=== PATIENT | male | born 1975 | race Caucasian/White ===

== ENCOUNTER 2020-04-12 17:37 | Observation (INO) | payer BC, OTHER ==
[~2020-04-12] VITALS: Ht 187 cm; Wt 123.0 kg
[2020-04-12] MEDS ORDERED: LISI10TA2 PO (17:43)
[2020-04-12] MEDS ORDERED: meTOprolol 5 MG/5 ML (LOPRESSOR) VIAL IV STA (17:48)
[2020-04-12 17:54] LABS: MEAN CORPUSCULAR HEMOGLOBIN 31 PG (25-34); MEAN CORPUSCULAR HGB CONC 33 G/DL (32-36); MEAN CORPUSCULAR VOLUME 94 FL (80-99); MEAN PLATELET VOLUME 9.4 FL (7.4-10.4); PLATELET COUNT 272 10^3/uL (130-400); WHITE BLOOD COUNT 9.6 10^3/uL (4.3-11.0)
[2020-04-12 17:55] LABS: BASOPHILS # (AUTO) 0.1 10^3/uL (0.0-0.1); BASOPHILS % (AUTO) 1 % (0-10); EOSINOPHILS # (AUTO) 0.4 10^3/uL (0.0-0.3); EOSINOPHILS % (AUTO) 4 % (0-10); HEMATOCRIT 51 % (40-54); LYMPHOCYTES # (AUTO) 3.2 X 10^3 (1.0-4.0); LYMPHOCYTES % (AUTO) 33 % (12-44); MONOCYTES # (AUTO) 0.7 X 10^3 (0.0-1.0); MONOCYTES % (AUTO) 7 % (0-12); NEUTROPHILS # (AUTO) 5.2 X 10^3 (1.8-7.8); NEUTROPHILS % (AUTO) 54 % (42-75)
--- NOTE | 2020-04-12 17:55 | ED General ---
General Chief Complaint: Cardiac/General Problems Stated Complaint: LT ARM/DARRICK CLAVICAL PAIN; INDIGESTION; NAUSEA Source of Information: Patient History of Present Illness Date Seen by Provider: Apr 12, 2020 Time Seen by Provider: 17:37 Initial Comments 44 yo Male presents with intermittent left arm pain, aching pain in upper back and clavicle. He also has had some nausea with this. He reports that it was intermittent and nothing specific seems to bring on the pain in arm. He had some indigestion last night and thought it was because he ate food that caused him to have an upset stomach. He then has had issues all day today. He is very anxious and nervous and concerned about what is going on for his symptoms. He was worried about what all is being done to him and states it is making him even more anxious and nervous that we are all looking at him at once when he presented. He has high blood pressure and takes lisinopril for that. He has family members with COPD and HTN. He does smoke cigarettes and drink alcohol but denies illicit drug use. Allergies and Home Medications Allergies Coded Allergies: No Known Drug Allergies (Unverified , 04/12/20) Home Medications Lisinopril 10 Mg Tablet, 10 MG PO DAILY, (Reported) Patient Home Medication List Home Medication List Reviewed: Yes Review of Systems Review of Systems Constitutional: No chills, No fever EENTM: no symptoms reported Respiratory: No cough, No short of breath Cardiovascular: see HPI, palpitations (heart racing here in the ED with anxiety) Gastrointestinal: see HPI, nausea (intermittent) Genitourinary: no symptoms reported Musculoskeletal: see HPI, muscle pain (left upper arm aching pain off and on all day) Skin: no symptoms reported Psychiatric/Neurological: Anxiety Past Msodlor-Bfvpwm-Ozvwcb Hx Past Med/Social Hx: Reviewed Nursing Past Med/Soc Hx Patient Social History Alcohol Use: Regular Use Alcohol Beverage of Choice: Beer Recreational Drug Use: No Smoking Status: Current Everyday Smoker Type Used: Cigarettes Recent Foreign Travel: No Contact w/Someone Who Travel: No Recent Infectious Disease Expo: No Recent Hopitalizations: No Past Medical History Surgeries: No Respiratory: No Cardiac: Yes Hypertension Psychosocial: Yes Anxiety Family Medical History Heart Disease, COPD, Hypertension Physical Exam Vital Signs Vital Signs - First Documented 04/12/20 17:40 Temp 36.8 Pulse 122 Resp 20 B/P (MAP) 206/113 (144) Pulse Ox 100 O2 Delivery Room Air Capillary Refill : Height, Weight, BMI Height: '" Weight: lbs. oz. kg; BMI Method: General Appearance: Anxious, Obese HEENT: PERRL/EOMI, Pharynx Normal Neck: Non Tender, Supple Respiratory: Chest Non Tender, Lungs Clear, Normal Breath Sounds, No Accessory Muscle Use, No Respiratory Distress Cardiovascular: No Murmur, Normal Peripheral Pulses, Tachycardia Gastrointestinal: Normal Bowel Sounds, No Pulsatile Mass, Non Tender, Soft Extremity: Normal Capillary Refill, Non Tender, No Pedal Edema Neurologic/Psychiatric: Alert, Oriented x3, ceo [place] II-XII Norm as Tested Skin: Normal Color, Warm/Dry Progress/Results/Core Measures Suspected Sepsis SIRS Temperature: Pulse: Respiratory Rate: Laboratory Tests 04/12/20 17:44: White Blood Count 9.6 Blood Pressure / Mean: Laboratory Tests 04/12/20 17:44: Creatinine 1.10, INR Comment 0.9, Platelet Count 272, Total Bilirubin 0.6 Results/Orders Lab Results Laboratory Tests Test 04/12/20 17:44 Range/Units White Blood Count 9.6 4.3-11.0 10^3/uL Red Blood Count 5.44 4.35-5.85 10^6/uL Hemoglobin 17.0 13.3-17.7 G/DL Hematocrit 51 40-54 % Mean Corpuscular Volume 94 80-99 FL Mean Corpuscular Hemoglobin 31 25-34 PG Mean Corpuscular Hemoglobin Concent 33 32-36 G/DL Red Cell Distribution Width 13.3 10.0-14.5 % Platelet Count 272 130-400 10^3/uL Mean Platelet Volume 9.4 7.4-10.4 FL Immature Granulocyte % (Auto) 0 % Neutrophils (%) (Auto) 54 42-75 % Lymphocytes (%) (Auto) 33 12-44 % Monocytes (%) (Auto) 7 0-12 % Eosinophils (%) (Auto) 4 0-10 % Basophils (%) (Auto) 1 0-10 % Neutrophils # (Auto) 5.2 1.8-7.8 X 10^3 Lymphocytes # (Auto) 3.2 1.0-4.0 X 10^3 Monocytes # (Auto) 0.7 0.0-1.0 X 10^3 Eosinophils # (Auto) 0.4 H 0.0-0.3 10^3/uL Basophils # (Auto) 0.1 0.0-0.1 10^3/uL Immature Granulocyte # (Auto) 0.0 0.0-0.1 10^3/uL Prothrombin Time 12.9 12.2-14.7 SEC INR Comment 0.9 0.8-1.4 Activated Partial Thromboplast Time 26 24-35 SEC Sodium Level 139 135-145 MMOL/L Potassium Level 3.4 L 3.6-5.0 MMOL/L Chloride Level 103 98-107 MMOL/L Carbon Dioxide Level 24 21-32 MMOL/L Anion Gap 12 5-14 MMOL/L Blood Urea Nitrogen 10 7-18 MG/DL Creatinine 1.10 0.60-1.30 MG/DL Estimat Glomerular Filtration Rate > 60 BUN/Creatinine Ratio 9 Glucose Level 148 H 70-105 MG/DL Calcium Level 10.5 H 8.5-10.1 MG/DL Corrected Calcium 10.2 H 8.5-10.1 MG/DL Magnesium Level 1.7 1.6-2.4 MG/DL Total Bilirubin 0.6 0.1-1.0 MG/DL Aspartate Amino Transf (AST/SGOT) 21 5-34 U/L Alanine Aminotransferase (ALT/SGPT) 26 0-55 U/L Alkaline Phosphatase 70 40-136 U/L Troponin I < 0.30 <0.30 NG/ML Pro-B-Type Natriuretic Peptide < 5.0 <75.0 PG/ML Total Protein 7.1 6.4-8.2 GM/DL Albumin 4.4 3.2-4.5 GM/DL Lipase 39 8-78 U/L My Orders Orders - LEI MASON MD Cbc With Automated Diff (04/12/20 17:48) Magnesium (04/12/20 17:48) Chest 1 View Ap/Pa Only (04/12/20 17:48) Ekg Tracing (04/12/20 17:48) Comprehensive Metabolic Panel (04/12/20 17:48) Protime With Inr (04/12/20 17:48) Partial Thromboplastin Time (04/12/20 17:48) O2 (04/12/20 17:48) Monitor-Rhythm Ecg Trace Only (04/12/20 17:48) Aspirin Chewable Tablet (Baby Aspirin Ch (04/12/20 18:00) Ed Iv/Invasive Line Start (04/12/20 17:48) Lipase (04/12/20 17:48) Troponin I Fs (04/12/20 17:48) Probnp Fs (04/12/20 17:48) Metoprolol Tartrate Injection (Lopressor (04/12/20 17:48) Amlodipine Tablet (Norvasc Tablet) (04/12/20 19:26) Medications Given in ED Current Medications Medications Dose Ordered Sig/Roxana Route Start Time Stop Time Status Last Admin Dose Admin Aspirin 324 mg ONCE ONCE PO 04/12/20 18:00 04/12/20 18:01 DC 04/12/20 18:01 324 MG Vital Signs/I&O 04/12/20 04/12/20 17:40 19:46 Temp 36.8 Pulse 122 83 Resp 20 19 B/P (MAP) 206/113 (144) 143/71 Pulse Ox 100 97 O2 Delivery Room Air Room Air Capillary Refill : Progress Note #1: Progress Note check labs and ECG with CXR. His heart rate is elevated but he states he is very anxious and is asking repeated questions because of being so nervous. Denies headache or vision change or chest pain with his elevated blood pressure. Will try a dose of metoprolol and give 324 m g of Aspirin while waiting on test results. Initial ECG shows sinus tachycardia but no ST elevation. Progress Note #2: Time: 18:12 Progress Note CBC and Coags are normal without acute significant abnormality. CXR without acute significant abnormality. Chemistry and cardiac enzymes pending. Heart rate improving as he is calming down and blood pressure starting to come down on its own some prior to metoprolol and aspirin administration. Progress Note #3: Time: 18:49 Progress Note Initial Troponin negative. D/w Dr. Brown robotics application engineer for [facility] and she accepted for observation admit for serial enzymes. She requested a UDS to be added on and to give Amlodipine for blood pressure. Advised pt of plan and he requested to try to go to [place] since he is more familar with that hospital and staff. However when [facility] was contacted they had no beds available. After updating pt he was agreeable to going to [facility]. He did want to have his son drive him rather than go by EMS though. He stated understanding of risk of cardiac problems and not being able to monitor his rhythm and heart condition. ECG Initial ECG Impression Date: Apr 12, 2020 Initial ECG Impression Time: 17:44 Initial ECG Rate: 113 Initial ECG Rhythm: S.Tach Initial ECG Comparisson: No Previous ECG Available Comment sinus tachycardia with heart rate 113 bpm. PA interval 138 ms. QT interval 302 ms with a QTc interval 414 ms. There is no acute ST elevation. There is no prior tracing available for comparison. Diagnostic Imaging Diagonstic Imaging: Xray Plain Films/CT/US/NM/MRI: chest Comments NAME: BRANDON ARAIZA [employer] REC#: [id number] PT STATUS: REG ER : 1975 PHYSICIAN: LEI MASON MD ADMIT DATE: 04/12/20/ER FS Signed Date of Exam:04/12/20 CHEST 1 VIEW AP/PA ONLY CHEST 1 VIEW AP/PA ONLY Indication: Left arm pain, nausea, elevated blood pressure. Comparison: None available. Findings: No focal airspace disease in the visualized lungs. Please note that the posterior lower lobes are poorly evaluated by portable radiography. No pleural effusion or pneumothorax. Normal cardiomediastinal silhouette. Impression: 1. No acute cardiopulmonary process by portable radiography. Dictated by: Dictated on workstation # [id number] Dict: 04/12/201806 Trans: 04/12/201807 [facility] [id number] Interpreted by: BHAVANI BOSS MD Electronically signed by: BHAVANI BOSS MD 04/12/201807 Departure Communication (Admissions) Time/Spoke to Admitting Phy: 18:49 d/w Dr. Brown robotics application engineer for [facility] since pt follows with Dr. Ceja. She accepted him for cardiac rule out and serial enzymes. With continued htn will give Amlodipine here and add on UDS. when patient advised of admission he wanted to try to go to [place] because it was more familiar with the hospital. However when the family was contacted they stated that they will work capacity and did not have any open beds for admission. When patient was advised that this he was willing to go to [place]. He refused an ambulance transfer and states he understands the risk of not being monitored in route. Impression Primary Impression: Hypertension Qualified Codes: I10 - Essential (primary) hypertension Additional Impressions: Left arm pain Nausea Disposition: 30 STILL A PATIENT Condition: Stable Admissions Decision to Admit Reason: Admit from ER (General) Decision to Admit/Date: Apr 12, 2020 Time/Decision to Admit Time: 18:49 LEI MASON MD Apr 12, 2020 17:55
[2020-04-12] MEDS ORDERED: ASPIRIN 81 MG CHEW (CHILDREN'S ASA) PO ONE (18:00)
[2020-04-12 18:09] LABS: INR 0.9 (0.8-1.4); PROTHROMBIN TIME PATIENT 12.9 SEC (12.2-14.7)
--- NOTE | 2020-04-12 18:09 | Diagnostic Imaging Report ---
CHEST 1 VIEW AP/PA ONLY Indication: Left arm pain, nausea, elevated blood pressure. Comparison: None available. Findings: No focal airspace disease in the visualized lungs. Please note that the posterior lower lobes are poorly evaluated by portable radiography. No pleural effusion or pneumothorax. Normal cardiomediastinal silhouette. Impression: 1. No acute cardiopulmonary process by portable radiography. Dictated by: Dictated on workstation # [id number]
[2020-04-12 18:17] LABS: CARBON DIOXIDE 24 MMOL/L (21-32); CHLORIDE 103 MMOL/L (98-107); POTASSIUM 3.4 MMOL/L (3.6-5.0); SODIUM 139 MMOL/L (135-145)
[2020-04-12 18:18] LABS: ALANINE AMINOTRANSFERASE 26 U/L (0-55); ALBUMIN 4.4 GM/DL (3.2-4.5); ALKALINE PHOSPHATASE 70 U/L (40-136); BILIRUBIN,TOTAL 0.6 MG/DL (0.1-1.0); BUN/CREATININE RATIO 9; CALCIUM 10.5 MG/DL (8.5-10.1); GFR ESTIMATED > 60; GLUCOSE 148 MG/DL (70-105); LIPASE 39 U/L (8-78); MAGNESIUM 1.7 MG/DL (1.6-2.4); TOTAL PROTEIN 7.1 GM/DL (6.4-8.2)
[2020-04-12] MEDS ORDERED: amLODIPine 5 MG (NORVASC) TAB PO STA (19:26)
[2020-04-12] MEDS ORDERED: morphine INJ 10 MG/ML 1ML (SYR OR VIAL) IVP PRN ×2 (21:15→21:45)
[2020-04-12] MEDS ORDERED: ALPRAZolam 0.25 MG (XANAX) TAB PO PRN (21:15)
[2020-04-12] MEDS ORDERED: diphenhydrAMINE 25 MG TAB (BENADRYL) PO PRN (21:15)
[2020-04-12] MEDS ORDERED: MELATONIN 3 MG TABLET PO PRN (21:15)
[2020-04-12] MEDS ORDERED: HYDROcodone/APAP 5 MG/325 MG (LORTAB) TAB PO PRN (21:15)
[2020-04-12] MEDS ORDERED: DOCUSATE SODIUM 100 MG (COLACE) CAP PO PRN (21:15)
[2020-04-12] MEDS ORDERED: LOPERAMIDE 2 MG (IMODIUM) TABLET PO PRN (21:15)
[2020-04-12] MEDS ORDERED: ACETAMINOPHEN 500 MG TAB (TYLENOL) PO PRN (21:15)
[2020-04-12] MEDS ORDERED: ONDANSETRON 4 MG/2 ML (SDV) Z0FRAN IVP PRN (21:15)
[2020-04-12] MEDS ORDERED: NITROGLYCERIN 2% OINT 1 GM UNIT DOSE PACKET TOP PRN (21:30)
[2020-04-12] MEDS ORDERED: hydrALAZINE (APESOLINE) 20 MG/ML VIAL IV PRN (21:30)
[2020-04-12] MEDS ORDERED: NITROGLYCERIN 0.4 MG SL TABS BTL 25'S SL PRN (21:45)
[2020-04-12] MEDS: CALCIUM CARBONATE 500 MG (TUMS) TAB.CHEW PO PRN (22:00)
[2020-04-12] MEDS ORDERED: ENOXAPARIN 40 MG/0.4 ML (LOVENOX) SYR SC SCH (22:00)
[2020-04-12 22:07] VITALS: BP 143/71
[2020-04-12] MEDS ORDERED: RT-ALBUTEROL SULF 2.5 MG/3 ML PRE-MIX VIAL INH PRN (22:15)
[2020-04-12] MEDS: NS IV 1000 ML 1,000 ML IV SCH (22:30)
[2020-04-13 01:24] LABS: BASOPHILS # (AUTO) 0.1 10^3/uL (0.0-0.1); BASOPHILS % (AUTO) 1 % (0-10); EOSINOPHILS # (AUTO) 0.5 10^3/uL (0.0-0.3); EOSINOPHILS % (AUTO) 5 % (0-10); HEMATOCRIT 47 % (40-54); HEMOGLOBIN 16.1 g/dL (13.3-17.7); LYMPHOCYTES # (AUTO) 3.5 10^3/uL (1.0-4.0); LYMPHOCYTES % (AUTO) 37 % (12-44); MEAN CORPUSCULAR HEMOGLOBIN 32 pg (25-34); MEAN CORPUSCULAR HGB CONC 34 g/dL (32-36); MEAN CORPUSCULAR VOLUME 93 fL (80-99); MEAN PLATELET VOLUME 9.6 fL (9.0-12.2); MONOCYTES # (AUTO) 0.9 10^3/uL (0.0-1.0); MONOCYTES % (AUTO) 10 % (0-12); NEUTROPHILS # (AUTO) 4.5 10^3/uL (1.8-7.8); NEUTROPHILS % (AUTO) 47 % (42-75); PLATELET COUNT 235 10^3/uL (130-400); WHITE BLOOD COUNT 9.6 10^3/uL (4.3-11.0)
[2020-04-13 01:31] LABS: CHLORIDE 107 MMOL/L (98-107); POTASSIUM 3.6 MMOL/L (3.6-5.0); SODIUM 140 MMOL/L (135-145)
[2020-04-13 01:32] LABS: ALBUMIN 3.9 GM/DL (3.2-4.5)
[2020-04-13 01:33] LABS: CALCIUM 9.5 MG/DL (8.5-10.1); TRIGLYCERIDES 127 MG/DL (<150); VLDL CHOLESTEROL 25 MG/DL (5-40)
[2020-04-13 01:34] LABS: GLUCOSE 101 MG/DL (70-105); TOTAL PROTEIN 6.7 GM/DL (6.4-8.2)
[2020-04-13 01:35] LABS: CARBON DIOXIDE 24 MMOL/L (21-32)
[2020-04-13 01:36] LABS: BILIRUBIN,TOTAL 0.6 MG/DL (0.1-1.0)
[2020-04-13 01:38] LABS: ALKALINE PHOSPHATASE 56 U/L (40-136); CHOLESTEROL 160 MG/DL (< 200); CREATININE SERUM 1.05 MG/DL (0.60-1.30); GFR ESTIMATED > 60
[2020-04-13 01:39] LABS: BUN/CREATININE RATIO 10
[2020-04-13 01:40] LABS: HDL CHOLESTEROL 39 MG/DL (40-60)
[2020-04-13 01:41] LABS: ALANINE AMINOTRANSFERASE 29 U/L (0-55)
[2020-04-13] MEDS: CALCIUM CARBONATE 500 MG (TUMS) TAB.CHEW PO PRN (05:52)
[2020-04-13] MEDS ORDERED: SENNA W/DOCUSATE (SENOKOT S) TABLET PO SCH (09:00)
[2020-04-13] MEDS ORDERED: ASPIRIN E.C. 81 MG (ECOTRIN) TAB PO SCH (09:00)
[2020-04-13] MEDS ORDERED: meTOprolol TARTRATE 25 MG (LOPRESSOR) TABLET PO SCH (09:00)
--- NOTE | 2020-04-13 11:39 | History & Physical-Hospitalist ---
History of Present Illness Date Seen 04/13/20 Attending Physician Carolee Brown DO PCP Otilio Ceja MD Referring Physician Date of Admission Apr 12, 2020 at 21:01 Home Medications & Allergies Home Medications Reviewed patient Home Medication Reconciliation performed by pharmacy medication reconciliations solid waste technician and/or nursing. Patients Allergies have been reviewed. Allergies Allergies Coded Allergies No Known Drug Allergies (Unverified04/12/20) Past Ozihate-Fitkzf-Lhbzkl Hx Past Med/Social Hx: Reviewed Nursing Past Med/Soc Hx Patient Social History Alcohol Use: Regular Use Alcohol Beverage of Choice: Beer Recreational Drug Use: No Smoking Status: Current Everyday Smoker Type Used: Cigarettes 2nd Hand Smoke Exposure: No Recent Foreign Travel: No Contact w/other who traveled: No Recent Hopitalizations: No Recent Infectious Disease Expo: No Seasonal Allergies Seasonal Allergies: No Past Medical History Cardiac: Hypertension Psychosocial: Anxiety History of Blood Disorders: No Family History Respiratory disorder 19 MOTHER Heart Disease, COPD, Hypertension Physical Exam Physical Exam Vital Signs Vital Signs - First Documented 04/12/20 04/12/20 17:40 22:07 Temp 36.8 Pulse 122 Resp 20 B/P (MAP) 206/113 (144) Pulse Ox 100 O2 Delivery Room Air FiO2 21 Capillary Refill : Less Than 3 Seconds Height, Weight, BMI Height: '" Weight: lbs. oz. kg; 35.17 BMI Method: Results Results/Procedures Labs Laboratory Tests 04/12/20 17:44 04/13/20 01:15 Patient resulted labs reviewed. CAROLEE BROWN DO Apr 13, 2020 11:39
[2020-04-13] MEDS: NS IV 1000 ML 1,000 ML IV SCH (11:58)
[2020-04-13] MEDS ORDERED: meTOproloL SUCCINATE 50 MG (TOPROL XL) TAB PO SCH ×2 (14:15→14:16)
[2020-04-13] MEDS ORDERED: METO50TA7 PO (14:16)
[2020-04-13] MEDS ORDERED: ASPI-1238 PO (14:16)
--- NOTE | 2020-04-13 14:23 | Short Stay Summary-Hospitalist ---
History of Present Illness HPI/Chief Complaint CC: Left arm pain HPI: This is a 44yoWM clinic patient of [facility] who smokes who presented to the ER with left arm pain suspicious for atypical ACS. Patient was admitted and monitored and Cardiology was consulted. Smoking cessation counseled. Source: patient Exam Limitations: no limitations Date Seen 04/13/20 Time Seen by a Provider: 13:00 Attending Physician Carolee Brown DO PCP Self,Otilio CHASE Referring Physician Date of Admission Apr 12, 2020 at 21:01 Home Medications & Allergies Home Medications Reviewed patient Home Medication Reconciliation performed by pharmacy medication reconciliations central sterile technician and/or nursing. Patients Allergies have been reviewed. Allergies Allergies Coded Allergies No Known Drug Allergies (Unverified04/12/20) Past Cbgrygj-Qtqbxn-Hwtyjt Hx Past Med/Social Hx: Reviewed Nursing Past Med/Soc Hx, Reviewed and Corrections made Patient Social History Marrital Status: Employed/Student: employed ([employer]) Alcohol Use: Regular Use Alcohol Beverage of Choice: Beer Recreational Drug Use: No Smoking Status: Current Everyday Smoker Type Used: Cigarettes 2nd Hand Smoke Exposure: No Recent Foreign Travel: No Contact w/other who traveled: No Recent Hopitalizations: No Recent Infectious Disease Expo: No Seasonal Allergies Seasonal Allergies: No Past Medical History Cardiac: Hypertension Psychosocial: Anxiety History of Blood Disorders: No Family History Respiratory disorder 19 MOTHER Heart Disease, COPD, Hypertension Review of Systems Constitutional: see HPI Musculoskeletal: joint pain Physical Exam Physical Exam Vital Signs Vital Signs - First Documented 04/12/20 04/12/20 17:40 22:07 Temp 36.8 Pulse 122 Resp 20 B/P (MAP) 206/113 (144) Pulse Ox 100 O2 Delivery Room Air FiO2 21 Capillary Refill : Less Than 3 Seconds Height, Weight, BMI Height: '" Weight: lbs. oz. kg; 35.17 BMI Method: General Appearance: Anxious, Obese Eyes: Bilateral Eye Normal Inspection, Bilateral Eye PERRL HEENT: PERRL/EOMI, Pharynx Normal Neck: Non Tender, Supple Respiratory: Chest Non Tender, Lungs Clear, Normal Breath Sounds, No Accessory Muscle Use, No Respiratory Distress Cardiovascular: No Murmur, Normal Peripheral Pulses, Tachycardia Gastrointestinal: Normal Bowel Sounds, No Pulsatile Mass, Non Tender, Soft Back: Normal Inspection, No CVA Tenderness, No Vertebral Tenderness Extremity: Normal Capillary Refill, Non Tender, No Pedal Edema Neurologic/Psychiatric: Alert, Oriented x3, sap integration architect II-XII Norm as Tested Skin: Normal Color, Warm/Dry Lymphatic: No Adenopathy Results Results/Procedures Labs Laboratory Tests 04/12/20 17:44 04/13/20 01:15 Patient resulted labs reviewed. Short Stay Diagnosis Discharge Diagnosis-Short Stay Admission Diagnosis Left arm pain Smoker HTN Final Discharge Diagnosis Left arm pain Smoker HTN Conclusion Plan Cardiology consultation Diagnosis/Problems Diagnosis/Problems (1) Left arm pain Status: Acute CAROLEE BROWN DO Apr 13, 2020 14:23
--- NOTE | 2020-04-13 15:35 | Consultation-Cardiology ---
HPI-Cardiology Cardiology Consultation: Date of Consultation 04/13/20 Time Seen by a Provider: 13:50 Date of Admission Attending Physician Carolee Brown DO Admitting Physician Otilio Ceja MD Consulting Physician JAYDA HILLS MD, MA, FACP, FACC, FSCAI, CCDS Physician requesting consult: Dr Brown HPI: Chief Complaint: CC: Chest discomfort HPI 44 yo man admitted to Dr Brown's svce on 04/12/20 with chest discomfort. Chest discomfort started on 04/12/20, was in the L and R upper parasternal areas, involved L shoulder and arm, was episodic, each episode lasted from about 2 seconds to 30 seconds, was mild, was a nondefinable feeling of discomfort, improved with Tylenol, has not returned since yesterday afternoon, no correlation with exertion. He denies shortness of breath or palp or syncope or leg swelling. Currently feels well and wishes to go home Review of Systems-Cardiology Review of Systems Constitutional: No malaise, No tiredness, No weight loss, No weight gain Eyes: No vision change Ears/Nose/Throat: No ear discharge, No nasal drainage, No recent hearing loss Respiratory: As described under HPI Cardiovascular: As described under HPI Gastrointestinal: No diarrhea, No nausea, No vomiting Genitourinary: No dysuria, No hematuria, No urine frequency changes Musculoskeletal: No back pain, No joint pain Skin: No rash, No ulcerations Psychiatric/Neurological: No seizure, No focal weakness, No syncope Hematologic: No bleeding abnormalities HII-Edkmyv-Tazrgx Hx Patient Social History Alcohol Use: Regular Use Recreational Drug Use: No Smoking Status: Current Everyday Smoker Type Used: Cigarettes 2nd Hand Smoke Exposure: No Recent Foreign Travel: No Recent Infectious Disease Expo: No Hospitalization with Isolation: Denies Past Medical History PMH As described under Assessment. Family Medical History Family Medical History: He does not report fam h/o early CAD or SCD Family History: Respiratory disorder 19 MOTHER Allergies and Home Medications Allergies Coded Allergies: No Known Drug Allergies (Unverified , 04/12/20) Home Medications Aspirin 81 Mg Tablet.dr, 81 MG PO DAILY Prescribed by: VARSHA PACHECO on 04/13/20 1416 Metoprolol Succinate 50 Mg Tab.er.24h, 50 MG PO DAILY Prescribed by: VARSHA PACHECO on 04/13/20 1416 Patient Home Medication List Home Medication List Reviewed: Yes Physical Exam-Cardiology Physical Exam Vital Signs/I&O 04/13/20 04/13/20 04/13/20 04/13/20 03:35 04:00 07:00 07:18 Temp 36.7 Pulse 74 66 Resp 20 B/P (MAP) 120/84 (96) Pulse Ox 98 95 O2 Delivery Room Air Room Air 04/13/20 04/13/20 04/13/20 04/13/20 08:00 08:00 08:00 11:56 Temp 36.7 Pulse 70 Resp 16 B/P (MAP) 133/90 (104) Pulse Ox 98 98 98 98 O2 Delivery Room Air Room Air Room Air Room Air 04/13/20 04/13/20 12:03 12:17 Temp 35.1 Pulse 82 79 Resp 16 B/P (MAP) 138/82 (100) Pulse Ox 97 O2 Delivery Room Air 04/13/20 00:00 Intake Total 120 ml Output Total 0 ml Balance 120 ml Capillary Refill : Less Than 3 Seconds Data Review Labs Laboratory Tests 04/12/20 17:44: White Blood Count 9.6, Red Blood Count 5.44, Hemoglobin 17.0, Hematocrit 51, Mean Corpuscular Volume 94, Mean Corpuscular Hemoglobin 31, Mean Corpuscular Hemoglobin Concent 33, Red Cell Distribution Width 13.3, Platelet Count 272, Mean Platelet Volume 9.4, Immature Granulocyte % (Auto) 0, Neutrophils (%) (Auto) 54, Lymphocytes (%) (Auto) 33, Monocytes (%) (Auto) 7, Eosinophils (%) (Auto) 4, Basophils (%) (Auto) 1, Neutrophils # (Auto) 5.2, Lymphocytes # (Auto) 3.2, Monocytes # (Auto) 0.7, Eosinophils # (Auto) 0.4H, Basophils # (Auto) 0.1, Immature Granulocyte # (Auto) 0.0, Prothrombin Time 12.9, INR Comment 0.9, Activated Partial Thromboplast Time 26, Sodium Level 139, Potassium Level 3.4L, Chloride Level 103, Carbon Dioxide Level 24, Anion Gap 12, Blood Urea Nitrogen 10, Creatinine 1.10, Estimat Glomerular Filtration Rate > 60, BUN/Creatinine Ratio 9, Glucose Level 148H, Calcium Level 10.5H, Corrected Calcium 10.2H, Magnesium Level 1.7, Total Bilirubin 0.6, Aspartate Amino Transf (AST/SGOT) 21, Alanine Aminotransferase (ALT/SGPT) 26, Alkaline Phosphatase 70, Troponin I < 0.30, Pro-B-Type Natriuretic Peptide < 5.0, Total Protein 7.1, Albumin 4.4, Lipase 39 04/13/20 01:15: White Blood Count 9.6, Red Blood Count 5.08, Hemoglobin 16.1, Hematocrit 47, Mean Corpuscular Volume 93, Mean Corpuscular Hemoglobin 32, Mean Corpuscular Hemoglobin Concent 34, Red Cell Distribution Width 13.1, Platelet Count 235, Mean Platelet Volume 9.6, Immature Granulocyte % (Auto) 0, Neutrophils (%) (Auto) 47, Lymphocytes (%) (Auto) 37, Monocytes (%) (Auto) 10, Eosinophils (%) (Auto) 5, Basophils (%) (Auto) 1, Neutrophils # (Auto) 4.5, Lymphocytes # (Auto) 3.5, Monocytes # (Auto) 0.9, Eosinophils # (Auto) 0.5H, Basophils # (Auto) 0.1, Immature Granulocyte # (Auto) 0.0, Sodium Level 140, Potassium Level 3.6, Chloride Level 107, Carbon Dioxide Level 24, Anion Gap 9, Blood Urea Nitrogen 11, Creatinine 1.05, Estimat Glomerular Filtration Rate > 60, BUN/Creatinine Rat io 10, Glucose Level 101, Calcium Level 9.5, Corrected Calcium 9.6, Total Bilirubin 0.6, Aspartate Amino Transf (AST/SGOT) 21, Alanine Aminotransferase (ALT/SGPT) 29, Alkaline Phosphatase 56, Troponin I < 0.028, Total Protein 6.7, Albumin 3.9, Triglycerides Level 127, Cholesterol Level 160, LDL Cholesterol Direct 111, VLDL Cholesterol 25, HDL Cholesterol 39L Laboratory Tests 04/12/20 17:44 04/13/20 01:15 A/P-Cardiology Assessment/Admission Diagnosis Chest discomfort, nonspecific, without any evidence of ACS Hypertension Smokes 1/2 - 1 ppd and has done that for 7 years Discussion and Recomendations * Given risk factors and nonspecific symptoms, we advised noninvasive cor risk stratification (stress test). This was discussed at length, including rationale, procedure, risks, benefits, potential complications, and alternatives. He understands and refuses any cardiac w/u. Wishes to go home. States will f/u as outpt and let us know if he changes his mind about cardiac w/u * We have advised him to immediately and completely quit smoking * We have advised adding ASA 81 mg daily to the regimen * Takes lisinopril for bp, he says. We have advised switching to beta-sara (Torprol XL 50 mg daily) * Outpt f/u advised * Cor risk factor mod discussed and questions answered JAYDA HILLS MD FACP FAC CCDS Apr 13, 2020 15:35
== END 2020-04-13 14:06 | disposition home or self-care (01) ==
LOC: ER FS 17:40 → CSD 21:01 → UNDOADMOB 21:01 → CSD 21:10 → UNDODISOB 04-13 16:00
PROVIDERS: ADMIT Internal Medicine; ATTEND Internal Medicine
DX: M79.602 Pain in left arm (principal); I10 Essential (primary) hypertension; F41.9 Anxiety disorder, unspecified; F17.210 Nicotine dependence, cigarettes, uncomplicated; Z79.899 Other long term (current) drug therapy
CPT/HCPCS: 36415; 71045; 80053 ×2; 80061; 83690; 83735; 83880; 84484 ×2; 85025 ×2; 85610; 85730; 93005; 93041; 94760; 99284; G0378

== ENCOUNTER 2020-04-19 02:09 | Emergency (ER) | payer BC ==
[~2020-04-19] VITALS: Ht 187.9 cm; Wt 129.1 kg
[~2020-04-19 02:09] MED LIST: ASPI-1238 PO; LISI10TA2 PO; METO50TA7 PO
--- NOTE | 2020-04-19 02:18 | ED Chest Pain ---
General Stated Complaint: CHEST PAIN History of Present Illness Date Seen by Provider: Apr 19, 2020 Time Seen by Provider: 02:17 Initial Comments 44-year-old male presents onset of chest pain one hour prior to arrival. States he was feeling fine today and pain began just when he laid down to bed tonight. Pain located in his upper central chest without radiation or associated nausea or diaphoresis. At its worst was 5 out of 10 intensity and on arrival is about 2 out of 10 intensity and improving. Patient seen last weekend in this ER and admitted overnight at [facility] for an episode of chest pain which ruled out acute coronary syndrome. He did see a reeling and tubing machine operator while admitted and had a stress test scheduled the day after, however he declined as he stated that he wanted to see his PCP to discuss first. He saw his PCP, Dr Ceja, who he says agrees that he should get a stress test done. Denies Hx of CAD or GERD. Denies recent illness, fever, chills, cough or soa. Today's episode of CP is different than last weekend as the pain then was primarily in his left arm (without CP) and lasted from 30 sec to 2 minutes and resolved spontaneously. Today he denies any radiation of pain to neck, back or extremity. Allergies and Home Medications Allergies Coded Allergies: No Known Drug Allergies (Unverified , 04/12/20) Home Medications Aspirin 81 Mg Tablet.dr, 81 MG PO DAILY Prescribed by: VARSHA PACHECO on 04/13/20 141 Metoprolol Succinate 50 Mg Tab.er.24h, 50 MG PO DAILY Prescribed by: VARSHA PACHECO on 04/13/20 1416 Patient Home Medication List Home Medication List Reviewed: Yes Review of Systems Review of Systems Constitutional: No chills, No dizziness, No fever, No malaise, No weakness Respiratory: Denies Cough, Denies Shortness of Air, Denies Stridor, Denies Wheezing Cardiovascular: Chest Pain; Denies Edema, Denies Irregular Heart Rate, Denies Lightheadedness, Denies Palpitations, Denies Syncope Gastrointestinal: Denies Abdominal Pain, Denies Constipated, Denies Diarrhea, Denies Nausea, Denies Poor Appetite, Denies Vomiting Musculoskeletal: No back pain, No joint pain, No muscle pain, No muscle stiffness, No muscle cramps Skin: No change in color, No pruritus, No rash Psychiatric/Neurological: Denies Headache, Denies Numbness, Denies Paresthesia, Denies Tremors, Denies Weakness Past Mcpitgo-Ojbavh-Bppnih Hx Past Med/Social Hx: Reviewed Nursing Past Med/Soc Hx Patient Social History Alcohol Beverage of Choice: Beer Type Used: Cigarettes 2nd Hand Smoke Exposure: No Recent Foreign Travel: No Contact w/Someone Who Travel: No Recent Hopitalizations: No Seasonal Allergies Seasonal Allergies: No Past Medical History Surgeries: No Respiratory: No Cardiac: Yes Hypertension Neurological: No Genitourinary: No Gastrointestinal: No Musculoskeletal: No Endocrine: No HEENT: No Cancer: No Psychosocial: Yes Anxiety Integumentary: No Blood Disorders: No Family Medical History Respiratory disorder 19 MOTHER Heart Disease, COPD, Hypertension Physical Exam Vital Signs Vital Signs - First Documented 04/19/20 02:10 Temp 36.6 Pulse 87 Resp 20 B/P (MAP) 154/94 (114) Pulse Ox 99 O2 Delivery Room Air Capillary Refill : Height, Weight, BMI Height: '" Weight: lbs. oz. kg; 35.17 BMI Method: General Appearance: No Apparent Distress, WD/WN HEENT: PERRL/EOMI, Normal ENT Inspection Neck: Non Tender, Supple Respiratory: Chest Non Tender, Lungs Clear Cardiovascular: Regular Rate, Rhythm, No Edema, No Gallop, No JVD, No Murmur Gastrointestinal: Normal Bowel Sounds, No Organomegaly, No Pulsatile Mass, Non Tender, Soft Extremity: Normal Capillary Refill, Normal Inspection, Non Tender, No Calf Tenderness Neurologic/Psychiatric: Alert, Oriented x3, No Motor/Sensory Deficits, Normal Mood/Affect Skin: Normal Color, Warm/Dry Progress/Results/Core Measures Results/Orders Lab Results Laboratory Tests Test 04/19/20 02:20 04/19/20 05:30 Range/Units White Blood Count 9.9 4.3-11.0 10^3/uL Red Blood Count 5.28 4.35-5.85 10^6/uL Hemoglobin 16.9 13.3-17.7 G/DL Hematocrit 49 40-54 % Mean Corpuscular Volume 93 80-99 FL Mean Corpuscular Hemoglobin 32 25-34 PG Mean Corpuscular Hemoglobin Concent 34 32-36 G/DL Red Cell Distribution Width 13.0 10.0-14.5 % Platelet Count 262 130-400 10^3/uL Mean Platelet Volume 9.4 7.4-10.4 FL Immature Granulocyte % (Auto) 0 % Neutrophils (%) (Auto) 35 L 42-75 % Lymphocytes (%) (Auto) 48 H 12-44 % Monocytes (%) (Auto) 9 0-12 % Eosinophils (%) (Auto) 7 0-10 % Basophils (%) (Auto) 1 0-10 % Neutrophils # (Auto) 3.5 1.8-7.8 X 10^3 Lymphocytes # (Auto) 4.7 H 1.0-4.0 X 10^3 Monocytes # (Auto) 0.9 0.0-1.0 X 10^3 Eosinophils # (Auto) 0.6 H 0.0-0.3 10^3/uL Basophils # (Auto) 0.1 0.0-0.1 10^3/uL Immature Granulocyte # (Auto) 0.0 0.0-0.1 10^3/uL Sodium Level 139 135-145 MMOL/L Potassium Level 3.6 3.6-5.0 MMOL/L Chloride Level 101 98-107 MMOL/L Carbon Dioxide Level 25 21-32 MMOL/L Anion Gap 13 5-14 MMOL/L Blood Urea Nitrogen 12 7-18 MG/DL Creatinine 1.12 0.60-1.30 MG/DL Estimat Glomerular Filtration Rate > 60 BUN/Creatinine Ratio 11 Glucose Level 97 70-105 MG/DL Calcium Level 9.3 8.5-10.1 MG/DL Corrected Calcium 8.5-10.1 MG/DL Total Bilirubin 0.9 0.1-1.0 MG/DL Aspartate Amino Transf (AST/SGOT) 22 5-34 U/L Alanine Aminotransferase (ALT/SGPT) 24 0-55 U/L Alkaline Phosphatase 63 40-136 U/L Troponin I < 0.30 < 0.30 <0.30 NG/ML Total Protein 7.4 6.4-8.2 GM/DL Albumin 4.6 H 3.2-4.5 GM/DL My Orders Orders - ROVENSTARISTEO ALEGRIA DO Ed Iv/Invasive Line Start (04/19/20 02:16) Troponin I Fs (04/19/20 02:16) Chest Pa/Lat (2 View) (04/19/20 02:16) Ekg Tracing (04/19/20 02:16) Cbc With Automated Diff (04/19/20 02:16) Comprehensive Metabolic Panel (04/19/20 02:16) Aspirin Chewable Tablet (Baby Aspirin Ch (04/19/20 02:45) Nitroglycerin 0.4 Mg Btl 25's (Nitrostat (04/19/20 02:45) Troponin I Fs (04/19/20 05:30) Ekg Tracing (04/19/20 05:30) Medications Given in ED Current Medications Medications Dose Ordered Sig/Roxana Route Start Time Stop Time Status Last Admin Dose Admin Aspirin 324 mg ONCE ONCE PO 04/19/20 02:45 04/19/20 02:46 DC 04/19/20 02:45 324 MG Nitroglycerin 0.4 mg NEEDED PRN SL 04/19/20 02:45 04/19/20 02:51 0.4 MG Vital Signs/I&O 04/19/20 04/19/20 04/19/20 04/19/20 02:10 02:10 02:52 06:12 Temp 36.6 36.6 37.1 Pulse 87 74 67 Resp 20 19 14 B/P (MAP) 154/94 (114) 133/81 (98) 120/75 (90) Pulse Ox 99 99 97 O2 Delivery Room Air Room Air Room Air Room Air Progress Progress Note : Progress Note Patient pain free, rested for a few hours while waiting on repeat Troponin which was also negative. Sent home w plans to have stress test done this week by Dr Vazquez. Initial ECG Impression Time: 02:23 Initial ECG Rhythm: Normal Sinus Initial ECG Intervals: Normal Initial ECG Impression: Normal EKG : Rhythm: Normal Sinus Intervals: Normal Intervals rate 65. No change from previous ECG @ 0230. No change from ECG 6 days ago. ECG Comparisson: Unchanged ECG Impression: Normal Departure Communication (Admissions) spoke to Dr Kaplan who agrees to admit pt for OBS Impression Primary Impression: Chest pain Qualified Codes: R07.9 - Chest pain, unspecified Disposition: HOME, SELF-CARE Condition: Improved Admissions Decision to Admit Reason: Admit from ER (General) Decision to Admit/Date: Apr 19, 2020 Time/Decision to Admit Time: 02:50 Departure-Patient Inst. Decision time for Depature: 06:21 Referrals: SELF,SAMMY CHASE (PCP/Family) Primary Care Physician Patient Instructions: Chest Pain (DC) Add. Discharge Instructions: Call your Systems Test Engineer office on Tuesday to schedule a stress test. Continue your current medication. ARISTEO GODINEZ DO Apr 19, 2020 02:18
[2020-04-19 02:27] LABS: BASOPHILS # (AUTO) 0.1 10^3/uL (0.0-0.1); BASOPHILS % (AUTO) 1 % (0-10); EOSINOPHILS # (AUTO) 0.6 10^3/uL (0.0-0.3); EOSINOPHILS % (AUTO) 7 % (0-10); HEMATOCRIT 49 % (40-54); HEMOGLOBIN 16.9 G/DL (13.3-17.7); LYMPHOCYTES # (AUTO) 4.7 X 10^3 (1.0-4.0); LYMPHOCYTES % (AUTO) 48 % (12-44); MEAN CORPUSCULAR HEMOGLOBIN 32 PG (25-34); MEAN CORPUSCULAR HGB CONC 34 G/DL (32-36); MEAN CORPUSCULAR VOLUME 93 FL (80-99); MEAN PLATELET VOLUME 9.4 FL (7.4-10.4); MONOCYTES # (AUTO) 0.9 X 10^3 (0.0-1.0); MONOCYTES % (AUTO) 9 % (0-12); NEUTROPHILS # (AUTO) 3.5 X 10^3 (1.8-7.8); NEUTROPHILS % (AUTO) 35 % (42-75); PLATELET COUNT 262 10^3/uL (130-400); WHITE BLOOD COUNT 9.9 10^3/uL (4.3-11.0)
[2020-04-19] MEDS ORDERED: ASPIRIN 81 MG CHEW (CHILDREN'S ASA) PO ONE (02:45)
[2020-04-19] MEDS ORDERED: NITROGLYCERIN 0.4 MG SL TABS BTL 25'S SL PRN (02:45)
[2020-04-19 02:48] LABS: ALANINE AMINOTRANSFERASE 24 U/L (0-55); ALBUMIN 4.6 GM/DL (3.2-4.5); ALKALINE PHOSPHATASE 63 U/L (40-136); BILIRUBIN,TOTAL 0.9 MG/DL (0.1-1.0); BUN/CREATININE RATIO 11; CALCIUM 9.3 MG/DL (8.5-10.1); CARBON DIOXIDE 25 MMOL/L (21-32); CHLORIDE 101 MMOL/L (98-107); CREATININE SERUM 1.12 MG/DL (0.60-1.30); GFR ESTIMATED > 60; GLUCOSE 97 MG/DL (70-105); SODIUM 139 MMOL/L (135-145); TOTAL PROTEIN 7.4 GM/DL (6.4-8.2)
[2020-04-19 02:55] LABS: POTASSIUM 3.6 MMOL/L (3.6-5.0)
--- NOTE | 2020-04-19 06:27 | Diagnostic Imaging Report ---
HISTORY: Chest pain. TECHNIQUE: 2 views of the chest. COMPARISON: 04/12/2020 FINDINGS: Lung volumes are somewhat large. No focal consolidation is seen. There is no pleural effusion or pneumothorax. The cardiac silhouette is normal in size. IMPRESSION: 1. No acute pulmonary abnormality seen. Dictated by: Dictated on workstation # [id number]
[2020-04-19 06:37] VITALS: BP 114/72
== END 2020-04-19 06:40 | disposition home or self-care (01) ==
LOC: EDUNIT# 02:09 → ER FS 02:12
DX: R07.9 Chest pain, unspecified (principal); I10 Essential (primary) hypertension; Z82.49 Family history of ischemic heart disease and other diseases of the circulatory system; Z79.82 Long term (current) use of aspirin
CPT/HCPCS: 36415; 71046; 80053; 84484; 85025; 93005

== ENCOUNTER → 2020-05-06 | Outpatient (CLI) | payer BC ==
[~2020-05-06] VITALS: Ht 187 cm; Wt 127.0 kg
[~2020-05-06] MED LIST changes: +REGADENOSON 0.4 MG/5 ML SYR (LEXISCAN) IV ONE
[2020-05-06] MEDS: CATHETER FLUSH 10 ML SYR IV PRN ×2 (12:11→13:18)
[2020-05-06 13:06] VITALS: BP 134/78
== END ==
LOC: CARD 11:23
PROVIDERS: ATTEND Nurse Practitioner Family
DX: I34.0 Nonrheumatic mitral (valve) insufficiency (principal)
CPT/HCPCS: 78452; 93017; 93306; A9502